=== PATIENT | male | born 1950 | race Caucasian/White ===

== ENCOUNTER 2018-03-19 15:41 | Emergency (ER) | payer MEDICARE | END 2018-03-19 16:05 | disposition home or self-care (01) | LOC: BURERS 15:41 | DX: J06.9 Acute upper respiratory infection, unspecified (principal); I10 Essential (primary) hypertension; Z79.899 Other long term (current) drug therapy | CPT/HCPCS: 99283 ==

== ENCOUNTER 2020-03-05 14:50 | Emergency (ER) | payer MEDICARE ==
[2020-03-05] MEDS ORDERED: Amoxicillin/Potassium Clav 875 MG TAB ONE (15:11)
[2020-03-05] MEDS ORDERED: TETANUS, DIPHTHERIA TOX,ADULT (TDVAX) 0.5 ML VIAL IM ONE (15:11)
== END 2020-03-05 15:40 | disposition home or self-care (01) ==
LOC: BURERS 14:50
DX: S61.451A Open bite of right hand, initial encounter (principal); I10 Essential (primary) hypertension; W54.0XXA Bitten by dog, initial encounter
CPT/HCPCS: 90471; 90714